=== PATIENT | male | born 1960 | race Caucasian/White ===

== ENCOUNTER 2017-04-21 18:25 | Emergency (ER) | payer OTHER ==
[~2017-04-21 18:25] MED LIST: ALBUTEROL 0.5ML INH; ASPIRIN PO; CIPRO PO; LASIX PO; LIPITOR PO; LISINOPRIL PO; PREDNISONE PO; TYLOX 5/500 CAP1 CAP PO
== END 2017-04-21 20:05 | disposition home or self-care (01) ==
LOC: CED 18:25
DX: Z53.21 Procedure and treatment not carried out due to patient leaving prior to being seen by health care provider (principal)

== ENCOUNTER 2017-04-22 10:41 | Emergency (ER) | payer SELFPAY ==
--- NOTE | ~2017-04-22 | US85 ---
[facility] A Service of [facility] RADIOLOGY TEXT RESULTS PATIENT: FABIO TIRADO SR LOCATION: [facility] : 62 UNIT #: [id number] AGE: [address]: Joann Ontiveros APRN SEX: M ORDER DR: [id number] [facility] [address] [place], [place] [address] [id number] E MR#: [id number] Acc #: [id number] NAME: FABIO TIRADO : 1960 SEX: M STUDY DATE/TIME: 04/22/2017 11:23 UNIT: CFTX ROOM: STUDY DESCRIPTION: [facility] Attending Physician: Joann Ontiveros A.P.R.N. Referring Physician: Mario Lester M.D. Ordering Physician: Elver Ha M.D. [facility] REPORT This report is preliminary unless electronic signature is present EXAM Unilateral left lower extremity venous Doppler, 04/22/2017. HISTORY Four day history of left lower leg pain and swelling. TECHNIQUE Venous ultrasound examination of the left lower extremity was performed using grayscale, spectral Doppler and color flow Doppler imaging. FINDINGS The examination is negative. There is no evidence of left lower extremity deep venous thrombus from the groin to the lower calf. Visualized greater saphenous vein is also patent. IMPRESSION Negative examination. No evidence of left lower extremity DVT. Dictated by... Mani Langston M.D. THIS IS AN ELECTRONICALLY VERIFIED REPORT Mani Langston M.D. at 04/23/2017 10:25 AM JANINE/tutu TD: 04/22/2017 17:31 JOB #: [id number] MEDICAL IMAGING REPORT [facility] A Service of [facility] RADIOLOGY TEXT RESULTS PATIENT: FABIO TIRADO SR LOCATION: [facility] : 62 UNIT #: [id number] AGE: [address]: Joann Ontiveros APRN SEX: M ORDER DR: Page 1 of 1 COPY
--- NOTE | ~2017-04-22 | CR169 ---
[facility]. [facility] A Service of [facility] RADIOLOGY TEXT RESULTS PATIENT: FABIO TIRADO SR LOCATION: [facility] : 62 UNIT #: [id number] AGE: [address]: Joann Ontiveros APRN SEX: M ORDER DR: [id number] [facility] [address] [place], [place] [address] [id number] E MR#: [id number] Acc #: [id number] NAME: FABIO TIRADO : 1960 SEX: M STUDY DATE/TIME: 04/22/2017 11:10 UNIT: [facility] ROOM: STUDY DESCRIPTION: CR Knee 2 Views Lt Attending Physician: Joann Ontiveros A.P.R.N. Ordering Physician: Ed Doctor [id number] [facility] Primary Care Physician: [facility] MEDICAL IMAGING REPORT This report is preliminary unless electronic signature is present EXAM Left knee 2 views 04/22/2017 1110 hours HISTORY Patient injured knee doing yard work 4-5 days ago with pain and swelling of the left knee. Prior history of patellar fracture. COMPARISON None. FINDINGS AP and cross-table lateral views demonstrate no joint effusion or fracture. There is a normal appearance to the medial and lateral compartments. There is a small calcification in the distal quadriceps tendon near the insertion site likely chronic. There is soft tissue swelling anteriorly and superficial to the tibial tubercle measuring up to 2.6 cm. This abuts the inferior patellar tendon and injury to the inferior patellar tendon cannot be excluded. IMPRESSION 1. No intraarticular joint effusion or fracture. Trace spurring in the patellofemoral compartment. 2. Benign linear calcification in the distal quadriceps tendon near the insertion site on the patella. 3. There is focal soft tissue swelling or edema in the superficial soft tissues adjacent to the tibial tubercle measuring up to 2.6 cm anterior to posterior. This could represent a focal hematoma, fluid in the bursa in this region or could be related to injury to the inferior patellar tendon. Dictated by... Suellen Edward M.D. [facility] A Service of [facility] RADIOLOGY TEXT RESULTS PATIENT: FABIO TIRADO SR LOCATION: [facility] : 62 UNIT #: [id number] AGE: [address]: Joann Ontiveros APRN SEX: M ORDER DR: THIS IS AN ELECTRONICALLY VERIFIED REPORT Suellen Edward M.D. at 04/23/2017 9:33 AM HENRY/gab TD: 04/22/2017 17:09 JOB #: [id number] MEDICAL IMAGING REPORT Page 1 of 1 COPY
== END 2017-04-22 13:38 | disposition home or self-care (01) ==
LOC: CED 10:41 → CFTX 10:41
DX: M70.52 Other bursitis of knee, left knee (principal); J44.9 Chronic obstructive pulmonary disease, unspecified; F31.9 Bipolar disorder, unspecified; I10 Essential (primary) hypertension; Z88.0 Allergy status to penicillin
CPT/HCPCS: 29530; 73560; 93971; 99284